=== PATIENT | male | born 1975 | race Caucasian/White ===

== ENCOUNTER 2017-12-19 13:49 | Emergency (ER) | payer OTHER ==
--- NOTE | 2017-12-19 14:39 | EDM.PDOC ---
ED HPI GENERAL MEDICAL PROBLEM - General Chief Complaint: Laceration Stated Complaint: [id number] CUT ON RT HAND Time Seen by Provider: 12/19/17 14:39 Source of Information: Reports: Patient, RN, RN Notes Reviewed History Limitations: Reports: No Limitations - History of Present Illness INITIAL COMMENTS - FREE TEXT/NARRATIVE: C/O cut palm of Rt hand at the base of the index finger 11 hours ago on the lid of can. Denies any other injury. Pt states he cleaned the cut with soap and water and has been applying neosporin oint. throughout the day. Last tetanus vaccine less that 10 yrs ago, pt believes 8yrs ago. Onset: Today Onset Date: 12/19/17 Onset Time: 05:30 Location: Reports: Upper Extremity, Right Severity: Mild Improves with: Reports: None Worsens with: Reports: Movement Associated Symptoms: Reports: No Other Symptoms Treatments [employer]: Reports: Home Treatments, Other Medication(s) Right Hand Pain Score (Numeric/FACES): 1 - Related Data Allergies Allergy/AdvReac Type Severity Reaction Status Date / Time No Known Allergies Allergy Verified 12/19/17 14:38 Home Meds: Home Meds Fluticasone Propionate [Flonase] 2 spray NASBOTH DAILY 12/19/17 [History] Past Medical History HEENT History: Reports: Allergic Rhinitis Social & Family History - Family History Family Medical History: Noncontributory - Tobacco Use Smoking Status *Q: Never Smoker - Living Situation & Occupation Living situation: Reports: Occupation: Employed ED ROS GENERAL - Review of Systems Review Of Systems: ROS reveals no pertinent complaints other than HPI. ED EXAM, SKIN/RASH Exam: See Below Exam Limited By: No Limitations General Appearance: Alert, WD/WN, No Apparent Distress Respiratory/Chest: No Respiratory Distress Extremities: Normal Range of Motion, Normal Capillary Refill, Other (1.5cm superficial flap laceration to palmar rt hand overlying the 2nd MCPJ and distal palm, no active bleeding, no FB, no erythema or drainage). No: Joint Swelling, Increased Warmth Neurological: Alert, Oriented, No Motor/Sensory Deficits Psychiatric: Normal Mood Course - Vital Signs Last Recorded V/S: Last Vital Signs Temp 36.6 C 12/19/17 14:33 Pulse 69 12/19/17 14:33 Resp 16 12/19/17 14:33 BP 148/75 H 12/19/17 14:33 Pulse Ox 98 12/19/17 14:33 - Orders/Labs/Meds Orders: Active Orders 24 hr Category Date Time Status DME for Discharge [COMM] Routine Oth 12/19/17 15:03 Ordered Steri Strips Application [OM.PC] Routine Oth 12/19/17 15:03 Ordered - Re-Assessments/Exams Free Text/Narrative Re-Assessment/Exam: 12/19/17 15:10 Rt hand lac. cleansed, steri-strips applied, dressed and splinted with alum. foam splint to prevent 2nd MCPJ movement from opening the lac. by RN. Departure - Departure Time of Disposition: 15:11 Disposition: Home, Self-Care 01 Condition: Good Clinical Impression: Laceration of hand, right Qualifiers: Encounter type: initial encounter Foreign body presence: without foreign body Qualified Code(s): S61.411A - Laceration without foreign body of right hand, initial encounter - Discharge Information Instructions: Sterile Tape Wound Care, Laceration Care, Adult, [id number] Forms: ED Department Discharge Additional Instructions: Wear finger splint until laceration has sufficiently healed so that it is not pulled open by movement of the affected joint. Follow up ER or clinic immediately if any signs of wound infection develop. - My Orders Last 24 Hours: My Active Orders 12/19/17 15:03 DME for Discharge [COMM] Routine Steri Strips Application [OM.PC] Routine - Assessment/Plan Last 24 Hours: My Active Orders 12/19/17 15:03 DME for Discharge [COMM] Routine Steri Strips Application [OM.PC] Routine
== END 2017-12-19 15:23 | disposition home or self-care (01) ==
LOC: DL.ED 13:49
DX: S61.411A Laceration without foreign body of right hand, initial encounter (principal); Z79.899 Other long term (current) drug therapy; W26.8XXA Contact with other sharp object(s), not elsewhere classified, initial encounter
CPT/HCPCS: 99283